=== PATIENT | male | born 1985 | race Caucasian/White ===

== ENCOUNTER 2019-10-17 18:13 | Emergency (ER) | payer BC ==
[~2019-10-17] VITALS: Ht 185.4 cm; Wt 65.8 kg
[2019-10-17 18:14] VITALS: BP 160/85
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
--- NOTE | 2019-10-17 18:21 | NUR ---
Dr Cline at bedside examining pt
[2019-10-17] MEDS ORDERED: IBUPROFEN 800 MG TAB PO ONE (18:25)
--- NOTE | 2019-10-17 18:45 | NUR ---
Pt to xray via wheelchair
--- NOTE | 2019-10-17 18:55 | NUR ---
Pt returned from xray via wheelchair
--- NOTE | 2019-10-17 19:09 | NUR ---
Report given to JAN Llanes. Transfer of care at this time
--- NOTE | 2019-10-17 19:10 | NUR ---
received report from parker maciel. will cont. care at this time.
--- NOTE | 2019-10-17 19:27 | NUR ---
Dr. Joseph examining patient.
[2019-10-17 19:41] VITALS: BP 110/80
--- NOTE | 2019-10-17 19:41 | NUR ---
Patient discharged with v/s stable. Written and verbal after care instructions given and explained. Patient alert, oriented and verbalized understanding of instructions. Ambulatory with steady gait . All questions addressed prior to discharge. ID band removed. Patient advised to follow up with PMD. Rx of given. Patient educated on indication of medication including possible reaction and side effects. Opportunity to ask questions provided and answered.
== END 2019-10-17 19:41 | disposition home or self-care (01) ==
LOC: MED 18:13
DX: M54.5 Low back pain (principal); R03.0 Elevated blood-pressure reading, without diagnosis of hypertension; V89.2XXA Person injured in unspecified motor-vehicle accident, traffic, initial encounter; Y93.89 Activity, other specified; Y92.89 Other specified places as the place of occurrence of the external cause; Y99.8 Other external cause status
CPT/HCPCS: 72080; 99283